=== PATIENT | male | born 1995 | race Caucasian/White ===

== ENCOUNTER → 2019-10-11 | Day surgery (SDC) | payer OTHER ==
[~2019-10-11] MED LIST: ETOMIDATE 2 MG/ML 10 ML INJ IV ONE; HYOSCYAMINE 0.125 MG TAB ONE; LIDOCAINE HCL 2% LOCAL INJ 5 ML SDV VIAL INJ ONE; PROPOFOL IV EMULSION 10 MG/ML 20 ML VIAL ONE
[2019-10-11 14:15] VITALS: BP 111/78
--- NOTE | 2019-10-11 14:44 | Operative Report ---
DATE OF PROCEDURE: 10/11/2019 SURGEON: Brandyn Davis MD PROCEDURE: Colonoscopy with polypectomy and biopsies. INDICATIONS FOR COLONOSCOPY: Rectal bleeding. MEDICATIONS: The patient was done under MAC, please see anesthesiologist's note. PROCEDURE IN DETAIL: With the patient in the left lateral decubitus position, a flexible fiberoptic Olympus colonoscope was inserted into the rectum with ease and advanced all the way to the cecum. It was then withdrawn slowly. Mucosa overlying the cecum, ascending colon, transverse colon, descending colon, and sigmoid colon appeared to be grossly within normal limits. Some patchy intense erythema and low-grade to moderate edema was noted in the rectum and biopsies were obtained. An approximately 4 mm sessile polyp was removed per hot snare polypectomy from the rectum. The scope was then retroflexed into the distal rectum and small internal hemorrhoids were noted, none of which was actively bleeding. The scope was then straightened out, it was subsequently withdrawn, and the patient tolerated the procedure well. IMPRESSION: 1. Proctitis, mild. Biopsies obtained. 2. Rectal polyp, hot snared. 3. Internal hemorrhoids, none actively bleeding. PLAN: Follow up histology. Initiate high-fiber, low-fat diet. Start VSL#3 one p.o. b.i.d. Benefiber two tablespoonfuls and a glass of water once daily and hydrocortisone 25 mg suppository b.i.d. x10 days and p.r.n. Brandyn Davis MD [facility] [place] [place] /[id number] cc: Sixto Sharma DO
== END | disposition home or self-care (01) ==
LOC: OR 09:19 → EDBD 11:30
PROVIDERS: ATTEND Internal Medicine Gastroenterology
DX: K62.89 Other specified diseases of anus and rectum (principal); K62.1 Rectal polyp; K64.8 Other hemorrhoids; F17.210 Nicotine dependence, cigarettes, uncomplicated; Z01.812 Encounter for preprocedural laboratory examination; Z11.59 Encounter for screening for other viral diseases
CPT/HCPCS: 45378; 45380; 45385; J2001; U0002

== ENCOUNTER 2020-01-26 21:07 | Emergency (ER) | payer OTHER ==
[~2020-01-26] VITALS: Ht 180.3 cm; Wt 54.4 kg
[2020-01-26] MEDS ORDERED: PENICILLIN G BENZATHINE LA 1.2 MU TBX IM STA (21:21)
--- NOTE | 2020-01-26 21:27 | Emergency Department Note ---
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 Historian: Patient Onset (how long ago): day(s) (1) Location: THROAT Quality: PAIN Radiation: Reports non-radiation Severity: mild Onset quality: sudden Duration (how long): day(s) (1) Timing of current episode: constant Progression: unchanged Chronicity: new Context: Denies recent illness, Denies recent surgery Relieving factors: none Exacerbating factors: other (SWALLOWING) Associated symptoms: Reports fever/chills Treatments prior to arrival: NSAID Past Medical/Family History Physician Review I have reviewed the patient's past medical and family history. Any updates have been documented here. Past Medical History Recent Fever: Yes Clinical Suspicion of Infectio: No New/Unexplained Change in Ment: No Past Medical History: None Past Surgical History: None Social History Smoking Cessation: Never Smoker Alcohol Use: None Any Illegal Drug Use: No Physically hurt or threatened: No Other Last Tetanus: UTD Review of Systems Review of Systems Constitutional: Reports as per HPI EENTM: Reports as per HPI Cardiovascular: Reports no symptoms Respiratory: Reports no symptoms Gastrointestinal: Reports no symptoms Genitourinary: Reports no symptoms Musculoskeletal: Reports no symptoms Integumentary: Reports no symptoms Neurological: Reports no symptoms Psychological: Reports no symptoms Endocrine: Reports no symptoms Hematological/Lymphatic: Reports no symptoms Physical Exam Related Data Allergies: Coded Allergies: No Known Allergies (Unverified , 11/09/11) Triage Vital Signs Vital Signs Date Time Temp Pulse Resp B/P (MAP) Pulse Ox O2 Delivery O2 Flow Rate FiO2 01/26/20 21:19 101.1 86 20 127/90 100 Room Air Vital signs reviewed: Yes Physical Exam CONSTITUTIONAL Constitutional: Present well-developed, Present well-nourished HENT HENT: Present normocephalic, Present atraumatic, Present nose normal, Present tonsillar excudate, Present erythema HENT L/R: Present left ext ear normal, Present right ext ear normal EYES Eyes: Reports PERRL, Reports conjunctivae normal NECK Neck: Present ROM normal PULMONARY Pulmonary: Present effort normal, Present breath sounds normal CARDIOVASCULAR Cardiovascular: Present regular rhythm, Present heart sounds normal, Present capillary refill normal, Present normal rate GASTROINTESTINAL Abdominal: Present soft, Present nontender, Present bowel sounds normal GENITOURINARY Genitourinary: Present exam deferred SKIN Skin: Present warm, Present dry MUSCULOSKELETAL Musculoskeletal: Present ROM normal NEUROLOGICAL Neurological: Present alert, Present oriented x 3, Present no gross motor or sensory deficits PSYCHOLOGICAL Psychological: Present mood/affect normal, Present judgement normal Assessment & Plan Medical Decision Making MDM PT WITH EXUDATIVE TONSILLITIS ON EXAM WITH FEVER BICILLIN LA 1.2 MILLION UNITS IM ORDERED Assessment & Plan Final Impression: (1) Exudative tonsillitis (2) Fever Depart Disposition: HOME, SELF-CARE Last Vital Signs Date Time Temp Pulse Resp B/P (MAP) Pulse Ox O2 Delivery O2 Flow Rate FiO2 01/26/20 21:19 101.1 86 20 127/90 100 Room Air Home Meds No Active Prescriptions or Reported Meds Medications in the ED Penicillin G Benzathine 1.2 mu ONCE STAT IM ; Start 01/26/20 at 21:21; Stop 01/26/20 at 21:22; Status UNV IVELISSE CHAVEZ MD Jan 26, 2020 21:26
--- NOTE | 2020-01-26 22:00 | NUR ---
no allergic reaction noted to patient. may go home
[2020-01-27] MEDS ORDERED: ACETAMINOPHEN 325 MG TAB ONE (00:33)
== END 2020-01-26 22:00 | disposition home or self-care (01) ==
LOC: ER 21:21
DX: R50.9 Fever, unspecified (principal); J03.90 Acute tonsillitis, unspecified
CPT/HCPCS: 99282; J0561